=== PATIENT | female | born 1955 | race Caucasian/White ===

== ENCOUNTER → 2019-05-10 09:43 | Outpatient (BNVA) | payer BC, SELFPAY | PROVIDERS: Family Provider Nurse Practitioner Family; Visit Provider Nurse Practitioner Family | DX: I10 Essential (primary) hypertension (principal); E03.9 Hypothyroidism, unspecified; J30.89 Other allergic rhinitis; J44.9 Chronic obstructive pulmonary disease, unspecified; M77.01 Medial epicondylitis, right elbow; E78.5 Hyperlipidemia, unspecified; F41.9 Anxiety disorder, unspecified; K21.9 Gastro-esophageal reflux disease without esophagitis; F17.200 Nicotine dependence, unspecified, uncomplicated | CPT/HCPCS: 84443 ==

== ENCOUNTER → 2019-11-17 08:32 | Outpatient (BNVA) | payer BC, SELFPAY | PROVIDERS: Family Provider Nurse Practitioner Family; Visit Provider Nurse Practitioner Family | DX: E03.9 Hypothyroidism, unspecified (principal); E78.5 Hyperlipidemia, unspecified; I10 Essential (primary) hypertension; K21.9 Gastro-esophageal reflux disease without esophagitis; J30.89 Other allergic rhinitis; F41.9 Anxiety disorder, unspecified; M77.01 Medial epicondylitis, right elbow; I73.00 Raynaud's syndrome without gangrene; J44.9 Chronic obstructive pulmonary disease, unspecified; F17.200 Nicotine dependence, unspecified, uncomplicated | CPT/HCPCS: 80053; 80061; 84443; 85025 ==

== ENCOUNTER → 2020-06-04 08:38 | Outpatient (BNVA) | payer MEDICARE, SELFPAY | PROVIDERS: Family Provider Nurse Practitioner Family; Visit Provider Nurse Practitioner Family | DX: E03.9 Hypothyroidism, unspecified (principal); E78.5 Hyperlipidemia, unspecified; I10 Essential (primary) hypertension | CPT/HCPCS: 80053; 80061; 84443; 85025 ==

== ENCOUNTER → 2020-08-22 09:51 | Outpatient (BNVA) | payer MEDICARE, SELFPAY | PROVIDERS: Family Provider Nurse Practitioner Family; PCP Nurse Practitioner Family; Visit Provider Nurse Practitioner Family | DX: B37.3 Candidiasis of vulva and vagina (principal); B96.89 Other specified bacterial agents as the cause of diseases classified elsewhere; N76.0 Acute vaginitis; N95.2 Postmenopausal atrophic vaginitis | CPT/HCPCS: 87070; 87205 ==

== ENCOUNTER → 2020-11-11 09:00 | Outpatient (BNVA) | payer MEDICARE, SELFPAY | PROVIDERS: Family Provider Nurse Practitioner Family; PCP Nurse Practitioner Family; Visit Provider Nurse Practitioner Family | DX: E78.5 Hyperlipidemia, unspecified (principal); E03.9 Hypothyroidism, unspecified; F41.9 Anxiety disorder, unspecified; J44.9 Chronic obstructive pulmonary disease, unspecified; I73.00 Raynaud's syndrome without gangrene; I10 Essential (primary) hypertension | CPT/HCPCS: 80053; 80061; 84443; 85025 ==

== ENCOUNTER → 2021-03-10 10:02 | Outpatient (BNVA) | payer MEDICARE, BC, SELFPAY | PROVIDERS: Family Provider Nurse Practitioner Family; PCP Nurse Practitioner Family; Referring Provider Nurse Practitioner Family; Visit Provider Specialist | DX: G25.0 Essential tremor (principal); E03.9 Hypothyroidism, unspecified; J44.9 Chronic obstructive pulmonary disease, unspecified; F17.210 Nicotine dependence, cigarettes, uncomplicated | CPT/HCPCS: 99204 ==

== ENCOUNTER → 2021-05-12 09:22 | Outpatient (BNVA) | payer MEDICARE, BC, SELFPAY | PROVIDERS: Family Provider Nurse Practitioner Family; PCP Nurse Practitioner Family; Visit Provider Nurse Practitioner Family | DX: I10 Essential (primary) hypertension (principal); I73.00 Raynaud's syndrome without gangrene; F41.9 Anxiety disorder, unspecified; E03.9 Hypothyroidism, unspecified; E78.5 Hyperlipidemia, unspecified; J44.9 Chronic obstructive pulmonary disease, unspecified; F17.200 Nicotine dependence, unspecified, uncomplicated; M77.01 Medial epicondylitis, right elbow; J30.89 Other allergic rhinitis; K21.9 Gastro-esophageal reflux disease without esophagitis; R25.1 Tremor, unspecified | CPT/HCPCS: 80053; 80061; 84443; 85025 ==

== ENCOUNTER → 2021-09-03 09:04 | Outpatient (BNVA) | payer MEDICARE, BC, SELFPAY | PROVIDERS: Family Provider Nurse Practitioner Family; PCP Nurse Practitioner Family; Visit Provider Specialist | DX: G25.0 Essential tremor (principal); J44.9 Chronic obstructive pulmonary disease, unspecified; F17.210 Nicotine dependence, cigarettes, uncomplicated | CPT/HCPCS: 99213; 99214 ==

== ENCOUNTER 2021-09-16 08:54 | Outpatient (CLI) | payer MEDICARE, BC, SELFPAY ==
--- NOTE | 2021-09-16 09:05 | MM_ITS ---
WS: [id number] SCREENING DIGITAL BREAST TOMOSYNTHESIS MAMMOGRAM WITH CAD HISTORY: SCREENING COMPARISON: 03/29/2019 and 04/10/2014 Bilateral CC and MLO with tomosynthesis and synthetic mammography submitted. Computer aided detection analyzed. Breast composition: There are scattered areas of fibroglandular density. 2 areas of asymmetry both no arnaud in the CC projections of each breast. These need further evaluation. Not definitely visualized on the lateral projection. Benign calcifications in each breast. MM/[place] [id number] IMPRESSION: BI-RADS: 0-Incomplete: Need additional imaging evaluation FOLLOW UP: Need Additional Imaging RIGHT breast: Spot compression views (CC ). True ML. Ultrasound to follow if ab normality persists. LEFT breast: Spot compression views (CC). True ML. Ultrasound to follow if abno rmality persists.
== END 2021-09-16 08:55 | disposition home or self-care (01) ==
LOC: RADSHAW 08:57
PROVIDERS: PCP Nurse Practitioner Family; Visit Provider Nurse Practitioner Family
DX: Z12.31 Encounter for screening mammogram for malignant neoplasm of breast (principal)
CPT/HCPCS: 77063; 77067

== ENCOUNTER 2021-10-20 11:17 | Outpatient (CLI) | payer MEDICARE, BC, SELFPAY ==
--- NOTE | 2021-10-20 11:23 | MM_ITS ---
WS: [id number] ADDITIONAL VIEWS BILATERAL MAMMOGRAM WITH DIGITAL BREAST TOMOSYNTHESIS. HISTORY: Asymmetries noted on the CC projections of the screening mammogram from 09/16/2021. COMPARISON: 09/16/2021, 03/29/2019 Spot compression views bilateral breast in CC projection and true ML submitted with digital breast to mosjess and SM. Asymmetries noted in the central breasts on the CC projections resolve with additional spot compressi on views. No residual asymmetry or suspicious mass. MM/[place] [id number] IMPRESSION: BI-RADS: 2-Benign FOLLOW UP: 1 Year Follow-up
== END 2021-10-20 11:18 | disposition home or self-care (01) ==
PROVIDERS: PCP Nurse Practitioner Family; Visit Provider Nurse Practitioner Family
DX: R92.8 Other abnormal and inconclusive findings on diagnostic imaging of breast (principal)
CPT/HCPCS: 77062

== ENCOUNTER → 2021-10-27 09:35 | Outpatient (BNVA) | payer MEDICARE, BC, SELFPAY | PROVIDERS: PCP Nurse Practitioner Family; Visit Provider Nurse Practitioner Family | DX: I10 Essential (primary) hypertension (principal); J44.9 Chronic obstructive pulmonary disease, unspecified; I73.00 Raynaud's syndrome without gangrene; F41.9 Anxiety disorder, unspecified; E03.9 Hypothyroidism, unspecified; E78.5 Hyperlipidemia, unspecified | CPT/HCPCS: 80053; 80061; 84443; 85025 ==

== ENCOUNTER → 2022-04-16 09:37 | Outpatient (BNVA) | payer MEDICARE, BC, SELFPAY | PROVIDERS: PCP Nurse Practitioner Family; Visit Provider Nurse Practitioner Family | DX: I10 Essential (primary) hypertension (principal); J44.9 Chronic obstructive pulmonary disease, unspecified; I73.00 Raynaud's syndrome without gangrene; E03.9 Hypothyroidism, unspecified; F41.9 Anxiety disorder, unspecified; E78.5 Hyperlipidemia, unspecified | CPT/HCPCS: 80053; 80061; 84443; 85025 ==

== ENCOUNTER → 2022-08-31 10:16 | Outpatient (BNVA) | payer MEDICARE, BC, SELFPAY | PROVIDERS: PCP Nurse Practitioner Family; Visit Provider Specialist | DX: G25.0 Essential tremor (principal); J44.9 Chronic obstructive pulmonary disease, unspecified; F17.210 Nicotine dependence, cigarettes, uncomplicated; R63.4 Abnormal weight loss; Z68.20 Body mass index [BMI] 20.0-20.9, adult | CPT/HCPCS: 99213 ==

== ENCOUNTER 2022-09-03 10:29 | Outpatient (CLI) | payer MEDICARE, BC, SELFPAY ==
--- NOTE | 2022-09-03 10:45 | CT_ITS ---
WS: [id number] LDCT LUNG CANCER SCREENING HISTORY: Z12.2 - Encounter for screening for malignant neoplasm of... TECHNIQUE: Axial imaging performed from the apices to 1 cm below the costophrenic angles. Coronal and sagittal reformats are submitted with axial MIP series. All CT scans at [facility] use at least one of these dose optimization techniques: automated exposure control; mA and/or kV adjustment per patient size (includes targeted exams where dose is matched to clinical indication); or iterativ e reconstruction. DLP: 39.89 mGy.cm DIvol: Mean CTDIvol: 0.50 (mGy) COMPARISON: None available. Diagnostic quality: Satisfactory Lungs: Severe centrilobular emphysema. 4 mm nodule LEFT upper lobe, image 79. Additional 3 mm nodule LEFT upper lobe, image 63. No endobronchial lesions. No pneumonia. Heart: Normal size heart with no pericardial effusion.. Other findings: Moderate atherosclerotic plaque aorta and proximal great vessels. Mildly ectatic aort a. Mildly enlarged pulmonary artery. No adenopathy. Heavy calcifications distributed in the coronary arteries. Large low-attenuation mass in the RIGHT adrenal gland measures 3.4 x 3.7 cm. Negative Houns field units consistent with an adenoma. Smaller LEFT adrenal gland adenoma measuring 1.[address]/CT lung screening [id number] IMPRESSION: LUNG-RADS: 3-Probably Benign FOLLOW UP: 6 Month LDCT OTHER FINDINGS (S MODIFIER): None.
== END 2022-09-03 10:30 | disposition home or self-care (01) ==
PROVIDERS: PCP Nurse Practitioner Family; Visit Provider Specialist
DX: Z12.2 Encounter for screening for malignant neoplasm of respiratory organs (principal); F17.200 Nicotine dependence, unspecified, uncomplicated; J43.2 Centrilobular emphysema
CPT/HCPCS: 71271

== ENCOUNTER → 2022-11-02 08:48 | Outpatient (BNVA) | payer MEDICARE, BC, SELFPAY | PROVIDERS: PCP Nurse Practitioner Family; Visit Provider Nurse Practitioner Family | DX: I10 Essential (primary) hypertension (principal) | CPT/HCPCS: 80053; 80061; 84443; 85025 ==

== ENCOUNTER 2023-02-11 22:39 | Emergency (ER) | payer MEDICARE, BC, SELFPAY ==
[2023-02-11 22:40] VITALS: BP 112/56; PULSE 69; RESP 20; TEMP 36.8; O2SAT 96; BMI 20.5
--- NOTE | 2023-02-11 22:47 | XRR_ITS ---
PROCEDURE INFORMATION: Exam: XR Right Elbow Exam date and time: 02/11/2023 10:59 PM Age: 67 years old Clinical indication: Injury or trauma; Fall; Other: N/a TECHNIQUE: Imaging protocol: Radiologic exam of the right elbow. Views: 3 or more views. COMPARISON: No relevant prior studies available. FINDINGS: Bones/joints: Normal. Soft tissues: Normal. XR/XR elbow RT min 3V* [id number] IMPRESSION: No acute findings.
--- NOTE | 2023-02-11 22:47 | CTR_ITS ---
PROCEDURE INFORMATION: Exam: CT Cervical Spine Without Contrast Exam date and time: 02/11/2023 11:22 PM Age: 67 years old Clinical indication: Injury or trauma; Fall; Blunt trauma TECHNIQUE: Imaging protocol: Computed tomography of the cervical spine without contrast. Radiation optimization: All CT scans at this facility use at least one of these dose optimization techniques: automated exposure control; mA and/or kV adjustment per patient size (includes targeted exams where dose is matched to clinical indication); or iterative reconstruction. REPORTING DATA: Count of CT and Cardiac NM exams in prior 12 months: This patient has received [address] and 0 known cardiac nuclear medicine studies in the 12 months prior to the current study. COMPARISON: CT neck w con* [id number] 09/29/2018 9:20 AM RADIATION DOSE METRICS: Total DLP (mGy-cm): 172.44 FINDINGS: Bones/joints: Multilevel disc space narrowing and productive endplate changes in largely the lower cervical spine. C2-C3: No significant disc bulge or herniation. No severe spinal canal stenosis. No significant neural foraminal narrowing. C3-C4: No significant disc bulge or herniation. No severe spinal canal stenosis. No significant neural foraminal narrowing. C4-C5: No significant disc bulge or herniation. No severe spinal canal stenosis. No significant neural foraminal narrowing. C5-C6: No significant disc bulge or herniation. No severe spinal canal stenosis. No significant neural foraminal narrowing. C6-C7: No significant disc bulge or herniation. No severe spinal canal stenosis. No significant neural foraminal narrowing. C7-T1: No significant disc bulge or herniation. No severe spinal canal stenosis. No significant neural foraminal narrowing. Lungs: Emphysematous changes. Biapical pleuroparenchymal fibrosis. Vasculature: Carotid artery atherosclerotic calcifications. Soft tissues: Unremarkable. CT/CT cervical spin wo con* [id number] IMPRESSION: 1. Negative fracture or dislocation. 2. Multilevel disc space narrowing and productive endplate changes in largely the lower cervical spine. 3. Carotid artery atherosclerotic calcifications. 4. Emphysematous changes. 5. Biapical pleuroparenchymal fibrosis.
--- NOTE | 2023-02-11 22:47 | CTR_ITS ---
PROCEDURE INFORMATION: Exam: CT Head Without Contrast Exam date and time: 02/11/2023 11:18 PM Age: 67 years old Clinical indication: Injury or trauma; Fall; Blunt trauma (contusions or hematomas); Additional info: Head injury TECHNIQUE: Imaging protocol: Computed tomography of the head without contrast. Radiation optimization: All CT scans at this facility use at least one of these dose optimization techniques: automated exposure control; mA and/or kV adjustment per patient size (includes targeted exams where dose is matched to clinical indication); or iterative reconstruction. REPORTING DATA: Count of CT and Cardiac NM exams in prior 12 months: This patient has received [address] and 0 known cardiac nuclear medicine studies in the 12 months prior to the current study. COMPARISON: CT neck w con* [id number] 09/29/2018 9:20 AM RADIATION DOSE METRICS: Total DLP (mGy-cm): 986.91 FINDINGS: Brain: [id number] diffuse white matter disease likely reflecting chronic microvascular ischemic changes. Cerebral ventricles: No ventriculomegaly. Paranasal sinuses: Paranasal sinus opacifications. Mastoid air cells: Visualized mastoid air cells are well aerated. Bones/joints: Unremarkable. No acute fracture. Soft tissues: Unremarkable. CT/CT head wo con* [id number] IMPRESSION: Negative for intracranial hemorrhage or mass effect.
--- NOTE | 2023-02-11 22:49 | W.ED.FALL ---
HPI - Fall General: Chief Complaint: Fall Stated Complaint: Fall/ Weakness Time Seen by Provider: 02/11/23 22:45 Source: patient and EMS Mode of arrival: EMS Limitations: no limitations History of Present Illness: 67-year-old female states that she been sitting at the table and had drank 4-5 beers states that when she had stood up she felt dizzy and fell and hit her head. She states that she believes she did pass out for a few seconds she has right-sided headache she rates 2 out of 10 states she also hit her right elbow denies any other pain elsewhere denies any chest pain before or after. Associated symptoms-after fall: Reports headache(s); Denies abdominal pain, chest pain or neck pain Review of Systems Const: Denies: fever(s), chills, body aches or change in appetite Eyes: Denies: blurry vision or eye discomfort ENMT: Denies: throat pain or dental pain Card: Denies: chest pain Resp: Denies: dyspnea GI: Denies: abdominal pain, nausea, vomiting or diarrhea : Denies: dysuria Musc: Reports: extremity pain; Denies: neck pain or back pain Skin/Breast: Denies: rash Neuro: Reports: headache(s) PFSH ED PFSH: Medical History Acquired hypothyroidism Anxiety COPD (chronic obstructive pulmonary disease) Dyslipidemia Environmental and seasonal allergies GERD (gastroesophageal reflux disease) Medial epicondylitis of right elbow Raynaud disease Smoker Surgical History History of delivery Hx of hysterectomy Family History Brother Stroke Other Diabetes Social History Smoking and tobacco/nicotine status: current every day tobacco/nicotine user cigarettes Packs smoked per day: 1 Alcohol intake: current Alcohol intake frequency: 3 or more drinks per day Alcohol type: beer Substance/Drug Use: never Lives independently: Yes Household members: spouse Housing: House Marital status: Female Reproductive History: Para: 2 Physical Exam Const: COMMON NORMALS: no acute distress, patient oriented x3 and healthy appearing HENMT: COMMON NORMALS: normocephalic HEAD & SCALP: normocephalic OTHER: Tenderness over right parietal region Eye: COMMON NORMALS: Equal, round and reactive pupils present and EOMs intact bilaterally PUPIL: Yes Equal, round and reactive pupils present Neck/C-Spine: COMMON NORMALS: full ROM and supple Chest: COMMONS NORMALS: normal inspection of the chest and normal palpation of entire chest wall Resp: COMMON NORMALS: normal respiratory effort, No retractions, No use of accessory muscles and clear to auscultation bilaterally AUSCULTATION: clear to auscultation bilaterally Cardio: COMMON NORMALS: regular rate, regular rhythm and No murmurs present (Cardio) RATE: regular rate RHYTHM: regular rhythm GI: COMMON NORMALS: Normal to inspection, nondistended, normoactive bowel sounds present, Soft to palpation, non-tender and no masses PALPATION: Yes Soft to palpation Extremity: COMMON NORMALS: full ROM NARRATIVE EXTREMITY EXAM: Slight tenderness right elbow has full range of motion no obvious deformities Neuro: COMMON NORMALS: patient oriented x3, moves all extremities and no focal motor deficits Psych: COMMON NORMALS: mental status grossly normal, Normal thought process present and cooperative THOUGHT PROCESS: Normal thought process present Skin: COMMON NORMALS: no rashes or lesions noted and no wounds GENERAL SKIN EXAM: no rashes or lesions noted Course Vital Signs: Vital signs: Vital Signs Temperature 98.3 F 02/11/23 22:40 Pulse Rate 76 02/11/23 23:31 Respiratory Rate 16 02/11/23 23:31 Blood Pressure 134/63 02/11/23 23:31 Pulse Oximetry 94 02/11/23 23:31 MDM - Fall Medical Decision Making Patient presents with closed head injury after a fall head CT and C-spine CT here are normal she likely had got dizzy and followed as she was been drinking alcohol her blood work here is normal she is stable for discharge she is to follow-up with PCP and return if worsening Medical Records I reviewed the patient's medical records. Lab Data I reviewed the patient's lab results. 02/11/23 23:10 02/11/23 23:10 Radiology Impressions Cervical Spine CT 02/11/23 22:47 IMPRESSION: 1. Negative fracture or dislocation. 2. Multilevel disc space narrowing and productive endplate changes in largely the lower cervical spine. 3. Carotid artery atherosclerotic calcifications. 4. Emphysematous changes. 5. Biapical pleuroparenchymal fibrosis. Elbow X-Ray 02/11/23 22:47 IMPRESSION: No acute findings. Head CT 02/11/23 22:47 IMPRESSION: Negative for intracranial hemorrhage or mass effect. Laboratory Results WBC 7.26 10^3/uL (3.29-11.43) 02/11/23 23:10 RBC 4.06 10^6/uL (3.85-5.65) 02/11/23 23:10 Hgb 12.70 g/dL (11.27-16.99) 02/11/23 23:10 Hct 39.5 % (36-47) 02/11/23 23:10 MCV 97.3 fl (85-98) 02/11/23 23:10 MCH 31.3 pg (27-33) 02/11/23 23:10 MCHC 32.2 g/dL (30-55) 02/11/23 23:10 RDW 11.8 % (12.1-15.1) L 02/11/23 23:10 Plt Count 166 10^3/cmm (157-399) 02/11/23 23:10 MPV 9.4 fL (7.4-10.4) 02/11/23 23:10 Neut % (Auto) 79.2 % 02/11/23 23:10 Lymph % (Auto) 12.0 % 02/11/23 23:10 [place] % (Auto) 7.7 % 02/11/23 23:10 Eos % (Auto) 0.1 % 02/11/23 23:10 Baso % (Auto) 0.6 % 02/11/23 23:10 Neut # (Auto) 5.75 10^3/uL (1.8-7.7) 02/11/23 23:10 Lymph # (Auto) 0.9 10^3/uL (0.8-4.8) 02/11/23 23:10 [place] # (Auto) 0.6 10^3/uL (0.2-0.9) 02/11/23 23:10 Eos # (Auto) 0.0 10^3/uL (0.0-0.8) 02/11/23 23:10 Baso # (Auto) 0.0 10^3/uL (0.0-0.1) 02/11/23 23:10 Nucleated RBC % (auto) 0 % 02/11/23 23:10 Nucleated RBCs # 0.0 /100WBC 02/11/23 23:10 Sodium 133 mmol/L (136-145) L 02/11/23 23:10 Potassium 3.0 mmol/L (3.5-5.1) L 02/11/23 23:10 Chloride 96 mmol/L (98-107) L 02/11/23 23:10 Carbon Dioxide 24 mmol/L (22-29) 02/11/23 23:10 Anion Gap 16.0 (5-19) 02/11/23 23:10 BUN 5 mg/dL (8-23) L 02/11/23 23:10 Creatinine 0.5 mg/dL (0.5-0.9) 02/11/23 23:10 GFR Calculation 123.1 mL/min (90-130) 02/11/23 23:10 Glucose 108 mg/dL (65-115) 02/11/23 23:10 Calculated Osmolality 274 mOsm/kg (285-295) L 02/11/23 23:10 Calcium 8.3 mg/dL (8.5-10.5) L 02/11/23 23:10 Total Bilirubin 0.2 mg/dL (0.15-1.2) 02/11/23 23:10 AST 22 U/L (0-32) 02/11/23 23:10 ALT 16 U/L (0-33) 02/11/23 23:10 Alkaline Phosphatase 72 U/L (35-105) 02/11/23 23:10 Total Protein 6.1 g/dL (6.6-8.7) L 02/11/23 23:10 Albumin 3.4 g/dL (3.5-5.2) L 02/11/23 23:10 Globulin 2.7 g/dL (1.3-4.6) 02/11/23 23:10 All radiology interpretation(s) finalized by discharge EKG Data EKG 1: I personally reviewed and interpreted this EKG as follows: EKG interpretation date: 02/11/23 EKG interpretation time: 23:03 Interpretation: nsr hr [address] or t wave abnormalities qrs 94 qtc 399 Discharge Plan Discharge Patient Disposition: Home Clinical Impression: CHI (closed head injury) Condition: Stable Prescriptions: No Action lovastatin 40 mg tablet 40 mg PO .hs 30 Days Qty: 30 11RF levothyroxine 50 mcg capsule 50 mcg PO QDAY 30 Days Qty: 30 11RF citalopram [Celexa] 10 mg tablet 10 mg PO QDAY 30 Days Qty: 30 11RF meclizine 25 mg tablet 25 mg PO BID PRN (Reason: dizziness) Qty: 60 2RF tizanidine 4 mg capsule 4 mg PO .HS PRN (Reason: muscle spasticity) Qty: 30 5RF albuterol sulfate [ProAir HFA] 90 mcg/actuation HFA aerosol inhaler 2 puff INHALATION Q4H PRN (Reason: shortness of breath or wheezing) 30 Days Qty: 1 5RF amoxicillin-pot clavulanate 875-125 mg tablet 1 tab PO BID Qty: 20 0RF primidone 50 mg tablet 50 mg PO DAILY Qty: 90 3RF prednisone 10 mg tablets,dose pack See Rx Instructions PO PER PKG DIR Qty: 21 0RF Rx Instructions: PO PER PKG DIR amlodipine 5 mg tablet 5 mg PO QDAY 30 Days Qty: 30 11RF Discharge Orders: Discharge ED (Routine); Ordered 02/11/23 Ordered By: Geneva Leiva Referrals: Stacey Blum FNP-C [Primary Care Provider] - 1-3 days Discharge Diet: Advance as tolerated Discharge Activity: Resume usual activity Patient Instructions: Head Injury (ED) Coding Level of Care Code ED Senior 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
--- NOTE | 2023-02-11 23:03 | ECG_ITS ---
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 Measurements Intervals [place] Rate: 70 P: 77 WV: 171 QRS: 79 QRSD: 94 T: 72 QT: 378 QTc: 410 Interpretive Statements SINUS RHYTHM No previous ECG available for comparison Electronically Signed On 02-12-2023 12:29:55 CDT by Geo Perkins M.D. [email or web address]
[2023-02-11 23:21] LABS: Basophils % 0.6 %; Eosinophils % 0.1 %; Hematocrit 39.5 % (36-47); Lymphocytes # 0.9 10^3/uL (0.8-4.8); Mean Corpuscular HGB Conc 32.2 g/dL (30-55); Mean Corpuscular Hemoglobin 31.3 pg (27-33); Mean Corpuscular Volume 97.3 fl (85-98); Mean Platelet Volume 9.4 fL (7.4-10.4); Monocytes # 0.6 10^3/uL (0.2-0.9); Monocytes % 7.7 %; Neutrophils # 5.75 10^3/uL (1.8-7.7); Neutrophils % 79.2 %; Nucleated Red Blood Cells % 0 %; Platelet Count 166 10^3/cmm (157-399); Red Blood Count 4.06 10^6/uL (3.85-5.65); Red Cell Distribution Width 11.8 % (12.1-15.1); White Blood Count 7.26 10^3/uL (3.29-11.43)
[2023-02-11 23:31] VITALS: BP 134/63; PULSE 76; RESP 16; O2SAT 94
[2023-02-11 23:38] LABS: Alanine Aminotransferase 16 U/L (0-33); Albumin Level 3.4 g/dL (3.5-5.2); Alkaline Phosphatase 72 U/L (35-105); Aspartate Amino Transferase 22 U/L (0-32); Blood Urea Nitrogen 5 mg/dL (8-23); Calcium 8.3 mg/dL (8.5-10.5); Carbon Dioxide 24 mmol/L (22-29); Chloride 96 mmol/L (98-107); Globulin 2.7 g/dL (1.3-4.6); Glomerular Filtration Rate 123.1 mL/min (90-130); Glucose 108 mg/dL (65-115); Osmolality Calculated 274 mOsm/kg (285-295); Sodium 133 mmol/L (136-145); Total Bilirubin 0.2 mg/dL (0.15-1.2); Total Protein 6.1 g/dL (6.6-8.7)
[2023-02-11 23:55] VITALS: BP 134/63; PULSE 76; RESP 16; TEMP 36.8; O2SAT 94
== END 2023-02-11 23:56 | disposition home or self-care (01) ==
PROVIDERS: Emergency Provider Emergency Medicine; PCP Nurse Practitioner Family
DX: S09.8XXA Other specified injuries of head, initial encounter (principal); F17.210 Nicotine dependence, cigarettes, uncomplicated; J44.9 Chronic obstructive pulmonary disease, unspecified; E78.5 Hyperlipidemia, unspecified; W18.39XA Other fall on same level, initial encounter
CPT/HCPCS: 36415; 70450; 72125; 73080; 80053; 85025; 93005; 99285

== ENCOUNTER → 2023-02-17 10:07 | Outpatient (BNVA) | payer MEDICARE, BC, SELFPAY | PROVIDERS: PCP Nurse Practitioner Family; Visit Provider Nurse Practitioner Family | DX: E83.51 Hypocalcemia (principal); E87.6 Hypokalemia | CPT/HCPCS: 80053 ==

== ENCOUNTER 2023-02-26 07:05 | Outpatient (CLI) | payer MEDICARE, BC, SELFPAY ==
--- NOTE | 2023-02-26 07:30 | USCV_ITS ---
Brinda Trevino Age: 67 Gender: F : 1955 Exam Date: 02/26/2023 07:20 Ordering Phys: Stacey Blum MANAGER FIELD INVESTIGATIONS-Theresa Technologist: AARTI Exam Location: [facility] [place] Indication: Unspecified atherosclerosis Risk Factors: Previous Vascular Surgery: Right Brachial BP: / Left Brachial BP: / Right Left Velocity (cm/s) Spectral Plaque Velocity (cm/s) Spectral Plaque Syst/Diast Broadening Syst/Diast Broadening 58.70/ 16.20 Prox CCA 90.40 / 24.30 55.70/ 18.20 Mid CCA 99.00 / 20.20 70.90/ 18.20 Distal CCA 86.70 / 23.50 51.30/ 9.30 Prox ICA 51.60 / 13.10 55.50/ 17.00 Mid ICA 60.00 / 24.40 53.50/ 14.10 Distal ICA 67.50 / 21.60 67.60 ECA 55.30 0.78 ICA/CCA 0.68 Antegrade Vertebral Antegrade 29.50/ 10.90 cm/s 35.70/ 13.20 cm/s Tri Subclavian Tri 73.40 141.6 0 CONCLUSIONS Right ICA stenosis <50%. Mild calcified atheromatous plaque right carotid bulb/ICA. Left ICA stenosis <50%. Mild calcified atheromatous plaque left carotid bulb/ICA. Intimal thickening in the common carotid arteries and internal carotid arteries bilaterally. Normal antegrade Doppler flow noted in the right vertebral artery. Normal antegrade Doppler flow noted in the left vertebral artery. Wade Alberto MD (Electronically Signed) Final Date: 26 February 2023 11:17 S
--- NOTE | 2023-02-26 08:45 | CTR_ITS ---
PROCEDURE INFORMATION: Exam: CT Chest Without Contrast; Diagnostic Exam date and time: 02/26/2023 7:14 AM Age: 67 years old Clinical indication: Condition or disease; Other: Pulmonary fibrosis; Additional info: J84.10 - pulmonary fibrosis, unspecified TECHNIQUE: Imaging protocol: Diagnostic computed tomography of the chest without contrast. Radiation optimization: All CT scans at this facility use at least one of these dose optimization techniques: automated exposure control; mA and/or kV adjustment per patient size (includes targeted exams where dose is matched to clinical indication); or iterative reconstruction. REPORTING DATA: Count of CT and Cardiac NM exams in prior 12 months: This patient has received 3 known CTs and 0 known cardiac nuclear medicine studies in the 12 months prior to the current study. COMPARISON: CT lung screening [id number] 09/03/2022 10:39 AM RADIATION DOSE METRICS: Total DLP (mGy-cm): 213.4 FINDINGS: Lungs: Severe emphysematous changes. No significant fibrotic changes. Unchanged tiny pulmonary nodules, no new or enlarging pulmonary nodules. Pleural spaces: No pneumothorax or pleural effusion. Heart: Severe coronary calcifications. No pericardial effusion. Lymph nodes: No enlarged lymph nodes. Vasculature: No aortic aneurysm. Bones/joints: No acute findings Soft tissues: Unchanged bilateral adrenal adenomas. CT/CT chest wo con [id number] IMPRESSION: Emphysema with unchanged tiny pulmonary nodules. No new/acute chest findings.
== END 2023-02-26 07:06 | disposition home or self-care (01) ==
LOC: RAD 07:05
PROVIDERS: PCP Nurse Practitioner Family; Visit Provider Nurse Practitioner Family
DX: J84.10 Pulmonary fibrosis, unspecified (principal); R91.8 Other nonspecific abnormal finding of lung field; R55 Syncope and collapse; I65.23 Occlusion and stenosis of bilateral carotid arteries; J44.9 Chronic obstructive pulmonary disease, unspecified; J43.9 Emphysema, unspecified; I70.90 Unspecified atherosclerosis; F17.200 Nicotine dependence, unspecified, uncomplicated
CPT/HCPCS: 71250; 93880

== ENCOUNTER → 2023-04-13 09:11 | Outpatient (BNVA) | payer MEDICARE, BC, SELFPAY | PROVIDERS: PCP Nurse Practitioner Family; Visit Provider Nurse Practitioner Family | DX: I10 Essential (primary) hypertension (principal) | CPT/HCPCS: 80053; 80061; 84443; 85025 ==

== ENCOUNTER → 2023-09-28 09:33 | Outpatient (BNVA) | payer MEDICARE, BC, SELFPAY | PROVIDERS: PCP Nurse Practitioner Family; Visit Provider Nurse Practitioner Family | DX: I10 Essential (primary) hypertension (principal) | CPT/HCPCS: 80053; 80061; 84443; 85025 ==

== ENCOUNTER → 2024-05-05 12:00 | Outpatient (BNVA) | payer MEDICARE, BC, SELFPAY | PROVIDERS: PCP Nurse Practitioner Family; Visit Provider Clinical Nurse Specialist Adult Health | DX: I10 Essential (primary) hypertension (principal); J44.9 Chronic obstructive pulmonary disease, unspecified; E03.9 Hypothyroidism, unspecified; E78.5 Hyperlipidemia, unspecified | CPT/HCPCS: 80053; 80061; 84443; 85025 ==

== ENCOUNTER 2024-06-23 10:07 | Outpatient (CLI) | payer MEDICARE, BC, SELFPAY ==
--- NOTE | 2024-06-23 10:00 | CT_ITS ---
WS: [id number] LDCT LUNG CANCER SCREENING TECHNIQUE: Noncontrast CT of the chest with coronal and sagittal reformatted images. CLINICAL INFORMATION: R91.8 - Other nonspecific abnormal finding of lung field COMPARISON: 2022 DLP: 49.37 mGy.cm DIvol: Mean CTDIvol: 0.70 (mGy) All CT scans at [facility] use at least one of these dose optimization techniques: automated exposure control; mA and/or kV adjustment per patient size (includes targeted exams where dose is matched to clinical indication); or iterative reconstruction. FINDINGS: Severe chronic emphysematous changes. Stable 4 mm nodule LEFT upper lobe. Stable 3 mm nodule LEFT upper lobe. A few stable micronodules in both upper lobes. No new suspicious pulmonary parenchymal opacities. Aortic calcification. Slightly ectatic ascending thoracic aorta. No mediastinal or hilar lymphadenopathy. Dense coronary calcification. Stable RIGHT adrenal nodule measuring 3.5 cm compatible with adenoma. Smaller LEFT adrenal adenoma. CT/CT lung screening [id number] IMPRESSION: LUNG-RADS: 2-Benign Appearance or Behavior FOLLOW UP: 12 Month: Continue annual screening with LDCT
--- NOTE | 2024-06-23 11:15 | USCV_ITS ---
Brinda Trevino Age: 69 Gender: F : 1955 Exam Date: 06/23/2024 10:40 Ordering Phys: Ranulfo Zazueta NP Technologist: [employer] Exam Location: [facility] [place] Indication: stenosis Risk Factors: Previous Vascular Surgery: Right Brachial BP: / Left Brachial BP: / Right Left Velocity (cm/s) Spectral Plaque Velocity (cm/s) Spectral Plaque Syst/Diast Broadening Syst/Diast Broadening 59.00/ 18.00 Prox CCA 71.90 / 19.20 96.30/ 22.80 Mid CCA 97.90 / 28.00 94.90/ 30.50 Distal CCA 90.30 / 21.40 71.50/ 18.30 Prox ICA 55.70 / 22.10 76.50/ 27.50 Mid ICA 56.60 / 21.90 51.30/ 21.60 Distal ICA 64.00 / 25.20 71.30 ECA 77.70 0.80 ICA/CCA 0.60 Antegrade Vertebral Antegrade 46.00/ 13.10 cm/s 37.60/ 11.20 cm/s Tri Subclavian Tri 68.80 153.7 0 CONCLUSIONS Right ICA stenosis <50%. Moderate atheromatous plaque right carotid bulb/ICA. Left ICA stenosis <50%. Moderate atheromatous plaque left carotid bulb/ICA. Intimal thickening in the common carotid arteries and internal carotid arteries bilaterally. Normal antegrade Doppler flow noted in the right vertebral artery. Normal antegrade Doppler flow noted in the left vertebral artery. Wade Alberto MD (Electronically Signed) Final Date: 23 June 2024 12:53 S
== END 2024-06-23 10:08 | disposition home or self-care (01) ==
PROVIDERS: PCP Clinical Nurse Specialist Adult Health; Visit Provider Clinical Nurse Specialist Adult Health
DX: Z12.2 Encounter for screening for malignant neoplasm of respiratory organs (principal); F17.200 Nicotine dependence, unspecified, uncomplicated; I65.23 Occlusion and stenosis of bilateral carotid arteries; R91.8 Other nonspecific abnormal finding of lung field; J44.9 Chronic obstructive pulmonary disease, unspecified; I70.0 Atherosclerosis of aorta; I25.10 Atherosclerotic heart disease of native coronary artery without angina pectoris; D35.02 Benign neoplasm of left adrenal gland; R93.89 Abnormal findings on diagnostic imaging of other specified body structures
CPT/HCPCS: 71271; 93880

== ENCOUNTER → 2024-10-27 10:25 | Outpatient (BNVA) | payer MEDICARE, BC, SELFPAY | PROVIDERS: PCP Clinical Nurse Specialist Adult Health; Visit Provider Clinical Nurse Specialist Adult Health | DX: I10 Essential (primary) hypertension (principal) | CPT/HCPCS: 80053; 80061; 84443; 85025 ==